=== PATIENT | male | born 1985 | race Caucasian/White ===

== ENCOUNTER 2018-03-17 10:55 | Emergency (ER) | payer SELFPAY ==
[2018-03-17] MEDS ORDERED: Sodium Chloride 0.9% 10 ML Syringe FLUSH PRN (11:47)
[2018-03-17] MEDS ORDERED: Iopamidol 612 MG/ML 50 ML SDV IVPUSH ONE (11:50)
[2018-03-17] MEDS ORDERED: Sodium Chloride 0.9% 10 ML Syringe FLUSH ONE (11:50)
--- NOTE | 2018-03-17 11:50 | EDM.PDOC ---
ED HPI GENERAL MEDICAL PROBLEM - General Chief Complaint: Head Injury Stated Complaint: HEAD INJURY ON WEDNESDAY-NOT BETTER Time Seen by Provider: 03/17/18 11:44 Source of Information: Reports: Patient History Limitations: Reports: No Limitations - History of Present Illness INITIAL COMMENTS - FREE TEXT/NARRATIVE: 32-year-old male presents for evaluation and treatment of headaches and facial pain. Patient reports on Wednesday he was helping a friend cutting lines. Reports one about lines struck him in the face. He was seen in the [place]. Received sutures but did not have any CTs or x-rays. Reports that they removed about a half-inch piece of metal from his face. Reports since this accident he has been having headaches. Mostly located in the frontal and temporal area. He states he normally does not have headaches. Reports associated symptoms of photophobia and nausea yesterday for a few hours. He did not vomit. He did not have any syncope with accident has not had any since. He reports some chronic numbness and tingling to his hands but this was before the accident has not appreciated any change. No changes in balance or gait. He reports this morning he woke up in his right eye was "stuck shut." He is experiencing a significant amount of swelling to the face and pain. States he is legally blind in his left eye. Has not appreciated any vision changes. He was placed on Bactrim by the [facility]. Denies any fevers or chills. Denies any lightheadedness or dizziness but ports he has been feeling "fuzzy". Denies any chronic medical conditions such as diabetes. Reports his tetanus was updated on Wednesday. Duration: Day(s): (2) Location: Reports: Head, Face Headache Pain Score (Numeric/FACES): 4 - Related Data Allergies Allergy/AdvReac Type Severity Reaction Status Date / Time Penicillins Allergy Cannot Verified 03/17/18 11:02 Remember Home Meds: Home Meds Sulfamethoxazole/Trimethoprim [Bactrim Ds Tablet] 1 tab PO ASDIRECTED 03/17/18 [ History] Past Medical History - Past Health History Medical/Surgical History: Denies Medical/Surgical History Social & Family History - Tobacco Use Smoking Status *Q: Current Every Day Smoker Years of Tobacco use: 13 Packs/Tins Daily: 0.5 - Caffeine Use Caffeine Use: Reports: Coffee, Energy Drinks - Recreational Drug Use Recreational Drug Use: No ED ROS GENERAL - Review of Systems Review Of Systems: See Below Constitutional: Denies: Fever, Chills HEENT: Reports: Other (facial pain, swelling and bruising). Denies: Vision Change GI/Abdominal: Reports: Nausea. Denies: Vomiting Skin: Reports: Wound (forehead and nose, sutures present) Neurological: Reports: Headache, Numbness (hands chronic, no change), Tingling ( hands chronic, no change). Denies: Dizziness, Syncope, Difficulty Walking, Gait Disturbance ED EXAM, HEAD INJURY - Physical Exam Exam: See Below Exam Limited By: No Limitations General Appearance: Alert, WD/WN, No Apparent Distress Head: Facial Abrasions (nasal bridge and medial forehead), Facial Ecchymosis ( under both eyes), Facial Lacerations (nasal bridge and medial forehead; sutures present), Facial Swelling (under both eyes and nose), Sinus Tenderness ( maxillary and ), Facial Tenderness, Raccoon Eyes Nexus Criteria: No: Posterior, Midline Cervical Tenderness, Evidence of Intoxication, Altered Level of Consciousness, Focal Neurological Deficit, Painful Distraction Injuries Eyes: Bilateral Eye: EOMI, Normal Inspection, PERRL Ears: Normal External Exam Nose: Nasal Ecchymosis. No: Nasal Deformity Throat/Mouth: Normal Inspection, Normal Lips, Normal Teeth Neck: Full Range of Motion, Normal Inspection Respiratory: No Respiratory Distress, Lungs Clear, Normal Breath Sounds Cardiovascular: Normal Peripheral Pulses, Regular Rate, Rhythm, No Murmur Neurologic: Alert, Normal Mood/Affect Skin: Normal Color, Warm/Dry - Sara Coma Score Best Eye Response ([place]): (4) Open Spontaneously Best Verbal Response ([place]): (5) Oriented Best Motor Response ([place]): (6) Obeys Commands Course - Vital Signs Last Recorded V/S: Last Vital Signs Temp 98.3 F 03/17/18 13:00 Pulse 68 03/17/18 13:00 Resp 16 03/17/18 13:00 BP 122/74 03/17/18 13:00 Pulse Ox 97 03/17/18 13:00 - Orders/Labs/Meds Orders: Active Orders 24 hr Category Date Time Status Peripheral IV Care [RC] . DIRECTED Care 03/17/18 11:47 Active Peripheral IV Insertion Adult [OM.PC] Routine Oth 03/17/18 11:47 Ordered Meds: Medications Discontinued Medications Generic Name Dose Route Start Last Admin Trade Name Jackson PRN Reason Stop Dose Admin Iopamidol 50 ml 03/17/18 11:50 03/17/18 12:10 Isovue-300 (61%) IVPUSH 03/17/18 11:51 50 ml ONETIME ONE Administration Sodium Chloride 10 ml 03/17/18 11:47 03/17/18 12:10 Saline Flush FLUSH 10 ml ASDIRECTED PRN Administration Keep Vein Open Sodium Chloride 10 ml 03/17/18 11:50 03/17/18 11:55 Saline Flush FLUSH 03/17/18 11:51 10 ml ONETIME ONE Administration - Radiology Interpretation Free Text/Narrative:: Head CT Technique: Multiple axial sections through the brain were obtained. Intravenous contrast was not utilized. Comparison: No prior intracranial imaging. Findings: Ventricles along the basal cisterns and sulci over the convexities are within normal limits for the patient's age. No abnormal parenchymal densities are seen. No evidence of intracranial hemorrhage. No midline shift or mass effect is seen. Bone window settings shows no acute calvarial abnormality. Several sinus findings are seen which will be described on facial CT exam. Impression: 1. No acute intracranial abnormality is identified on noncontrast head CT study. CT face Technique: Multiple axial sections were obtained through the face. Intravenous contrast was utilized. Findings: No soft tissue abnormality is seen. Right and left globes are symmetric. Extraocular muscles are symmetric between right and left sides. Optic nerves appear within normal limits. No retrobulbar abnormality is seen. Mild mucosal thickening is seen within a portion of the frontal sinuses and anterior ethmoid sinuses. Other sinuses are clear. Mastoid sinuses and middle ear cavities are clear. No air-fluid levels are seen within the sinuses. No facial bone fracture is seen. Impression: 1. Mild mucosal thickening seen within a portion of the frontal and ethmoid sinuses. 2. No additional abnormality is seen on CT study of the face. - Re-Assessments/Exams Free Text/Narrative Re-Assessment/Exam: 03/17/18 12:[address] results with the patient. We will discharge him home at this time. Discharge instructions as documented. Departure - Departure Time of Disposition: 12:42 Disposition: Home, Self-Care 01 Condition: Fair Clinical Impression: Laceration, Facial swelling - Discharge Information Instructions: Facial Laceration, Laceration Care, Adult, [id number] Referrals: PCP,None [Primary Care Provider] - Forms: ED Department Discharge Additional Instructions: Continue with your current plan of care. Tylenol or Motrin as needed for pain and swelling relief. Continue to use ice to the area to help with the swelling. Expect the swelling to last about 7-10 days. Follow-up with your primary care provider as needed. Please return the ER if your symptoms change or worsen. - My Orders Last 24 Hours: My Active Orders 03/17/18 11:47 Peripheral IV Care [RC] . DIRECTED Peripheral IV Insertion Adult [OM.PC] Routine - Assessment/Plan Last 24 Hours: My Active Orders 03/17/18 11:47 Peripheral IV Care [RC] . DIRECTED Peripheral IV Insertion Adult [OM.PC] Routine
--- NOTE | 2018-03-17 12:27 | CT ---
Head CT Technique: Multiple axial sections through the brain were obtained. Intravenous contrast was not utilized. Comparison: No prior intracranial imaging. Findings: Ventricles along the basal cisterns and sulci over the convexities are within normal limits for the patient's age. No abnormal parenchymal densities are seen. No evidence of intracranial hemorrhage. No midline shift or mass effect is seen. Bone window settings shows no acute calvarial abnormality. Several sinus findings are seen which will be described on facial CT exam. Impression: 1. No acute intracranial abnormality is identified on noncontrast head CT study. Diagnostic code #1
--- NOTE | 2018-03-17 12:29 | CT ---
CT face Technique: Multiple axial sections were obtained through the face. Intravenous contrast was utilized. Findings: No soft tissue abnormality is seen. Right and left globes are symmetric. Extraocular muscles are symmetric between right and left sides. Optic nerves appear within normal limits. No retrobulbar abnormality is seen. Mild mucosal thickening is seen within a portion of the frontal sinuses and anterior ethmoid sinuses. Other sinuses are clear. Mastoid sinuses and middle ear cavities are clear. No air-fluid levels are seen within the sinuses. No facial bone fracture is seen. Impression: 1. Mild mucosal thickening seen within a portion of the frontal and ethmoid sinuses. 2. No additional abnormality is seen on CT study of the face. Diagnostic code #2
== END 2018-03-17 13:05 | disposition home or self-care (01) ==
LOC: JD.ED 10:55
DX: S01.21XA Laceration without foreign body of nose, initial encounter (principal); S01.81XA Laceration without foreign body of other part of head, initial encounter; F17.210 Nicotine dependence, cigarettes, uncomplicated; Z88.0 Allergy status to penicillin; W22.8XXA Striking against or struck by other objects, initial encounter
CPT/HCPCS: 70450; 70487; 99284; J7050; Q9967; 99283

== ENCOUNTER 2018-03-21 10:43 | Emergency (ER) | payer SELFPAY ==
[2018-03-21] MEDS ORDERED: Dicyclomine 10 MG Cap PO ONE (11:13)
[2018-03-21] MEDS ORDERED: Sodium Chloride 0.9% 10 ML Syringe FLUSH PRN (11:13)
[2018-03-21] MEDS ORDERED: Sodium Chloride 0.9% 1,000 ML IV SCH (11:15)
--- NOTE | 2018-03-21 11:15 | EDM.PDOC ---
ED HPI GENERAL MEDICAL PROBLEM - General Chief Complaint: General Stated Complaint: REMOVAL OF STITCHES Time Seen by Provider: 03/21/18 11:09 Source of Information: Reports: Patient History Limitations: Reports: No Limitations - History of Present Illness INITIAL COMMENTS - FREE TEXT/NARRATIVE: Patient is a 32-year-old male who presents to the ED to have sutures removed from his face. States approximately one week ago he suffered a laceration to his forehead and nose after a copper pipe hit him in the face. Sutures were placed in [facility]. He is a resident of [place] and did not want to travel to back to [place] to have them removed for free. Denies any complaints including: Signs of infection, drainage, increased redness, swelling, or pain.. - Related Data Allergies Allergy/AdvReac Type Severity Reaction Status Date / Time Penicillins Allergy Cannot Verified 03/21/18 10:48 Remember Home Meds: Home Meds Sulfamethoxazole/Trimethoprim [Bactrim Ds Tablet] 1 tab PO ASDIRECTED 03/17/18 [ History] Past Medical History - Past Health History Medical/Surgical History: Denies Medical/Surgical History Social & Family History - Tobacco Use Smoking Status *Q: Current Every Day Smoker Years of Tobacco use: 15 Packs/Tins Daily: 0.5 - Caffeine Use Caffeine Use: Reports: None - Recreational Drug Use Recreational Drug Use: No ED ROS GENERAL - Review of Systems Review Of Systems: ROS reveals no pertinent complaints other than HPI. ED EXAM, GENERAL - Physical Exam Exam: See Below Exam Limited By: No Limitations General Appearance: Alert, WD/WN, No Apparent Distress Ears: Hearing Grossly Normal Head: Other (2.2 cm laceration with [address] 1 cm laceration to the bridge of the nose with [address] Wound edges are well approximated. No concerns for infection.) Course - Vital Signs Last Recorded V/S: Last Vital Signs Temp 98.4 F 03/21/18 10:49 Pulse 93 03/21/18 10:49 Resp 13 03/21/18 10:49 BP 145/74 H 03/21/18 10:49 Pulse Ox 98 03/21/18 10:49 - Orders/Labs/Meds Orders: Active Orders 24 hr Category Date Time Status Peripheral IV Care [RC] . DIRECTED Care 03/21/18 11:13 Inactive Meds: Medications Discontinued Medications Generic Name Dose Route Start Last Admin Trade Name Freq PRN Reason Stop Dose Admin Dicyclomine HCl 10 mg 03/21/18 11:13 Bentyl PO 03/21/18 11:14 ONETIME ONE Sodium Chloride 1,000 mls @ 150 mls/hr 03/21/18 11:15 Normal Saline IV ASDIRECTED CLAY Sodium Chloride 10 ml 03/21/18 11:13 Saline Flush FLUSH ASDIRECTED PRN Keep Vein Open - Re-Assessments/Exams Free Text/Narrative Re-Assessment/Exam: Labs ordered on the wrong patient in error. Sutures to be removed by nursing staff. Discharge instructions as documented. Departure - Departure Time of Disposition: 11:15 Disposition: Home, Self-Care 01 Condition: Good Clinical Impression: Encounter for removal of sutures - Discharge Information Instructions: Incision Care, Adult, [id number] Referrals: PCP,None [Primary Care Provider] - Forms: ED Department Discharge - My Orders Last 24 Hours: My Active Orders 03/21/18 11:13 Peripheral IV Care [RC] . DIRECTED - Assessment/Plan Last 24 Hours: My Active Orders 03/21/18 11:13 Peripheral IV Care [RC] . DIRECTED
== END 2018-03-21 11:31 | disposition home or self-care (01) ==
LOC: JD.ED 10:43
DX: S01.81XD Laceration without foreign body of other part of head, subsequent encounter (principal); F17.210 Nicotine dependence, cigarettes, uncomplicated; Z88.0 Allergy status to penicillin; W22.8XXD Striking against or struck by other objects, subsequent encounter
CPT/HCPCS: 99281; 99282